=== PATIENT | female | born 1980 | race Caucasian/White ===

== ENCOUNTER 2023-10-18 04:04 | Day surgery (SDC) | payer OTHER ==
[2023-10-14 11:04] VITALS: BMI 34.7
[2023-10-18] MEDS ORDERED: MIDAZOLAM HCL 2 MG/2 ML SINGLE DOSE VIAL ONE (07:10)
[2023-10-18] MEDS ORDERED: LIDOCAINE HCL/PF 2% SDV 5ML VIAL ONE (07:10)
[2023-10-18] MEDS ORDERED: PROPOFOL 60 ML ONE (07:10)
[2023-10-18] MEDS ORDERED: LIDOCAINE HCL 1%, 10 MG/ML (20ML VIAL) ONE (07:26)
[2023-10-18] MEDS ORDERED: BUPIVACAINE HCL/PF 0.5% (5MG/ML) 10 ML VIAL ONE (07:26)
[2023-10-18] MEDS ORDERED: ceFAZolin SODIUM 1 GM VIAL ONE (08:18)
[2023-10-18] MEDS ORDERED: DEXAMETHASONE SOD PHOSPHATE 4 MG/1 ML VIAL ONE (08:18)
[2023-10-18] MEDS ORDERED: ONDANSETRON 4 MG/2 ML VIAL ONE (08:18)
[2023-10-18] MEDS ORDERED: KETOROLAC TROMETHAMINE 30 MG/1 ML VIAL ONE (08:18)
[2023-10-18] MEDS ORDERED: ceFAZolin SODIUM 1 GM VIAL IVPB ONE (08:26)
[2023-10-18 10:20] VITALS: BP 135/80; PULSE 88; RESP 20; TEMP 98.2
== END 2023-10-18 11:00 | disposition home or self-care (01) ==
LOC: JASU-SURG 04:04
PROVIDERS: ATTEND Orthopaedic Surgery
PROC: 0LB50ZZ Excision of Right Lower Arm and Wrist Tendon, Open Approach (ICD-10-PCS; 2023-10-18)
PROC: 0LN50ZZ Release Right Lower Arm and Wrist Tendon, Open Approach (ICD-10-PCS; principal; 2023-10-18 08:00)
DX: M65.4 Radial styloid tenosynovitis [de Quervain] (principal)
CPT/HCPCS: 81025; 88304-TC